=== PATIENT | female | born 1975 | race Caucasian/White ===

== ENCOUNTER 2017-09-28 22:28 | Emergency (ER) | payer SELFPAY ==
--- NOTE | 2017-09-28 23:08 | ED.PDOC ---
History of Present Illness - General Chief Complaint: General Stated Complaint: H/A dry mouth,SOB, nausea, Chest heavy Time Seen by Provider: 09/28/17 23:05 Additional Information: 41 YEAR OLD WHITE FEMALE PRESENTS WITH THE FOLLOWING SYMPTOMS WEAKNESS SHORTNESS OF BREATH CHILLS SHARP CHEST PAIN WORSE WITH DEEP BREATH SHE HAS BEEN LYING IN BED FOR A WEEK SHE HAS POOR APPETITE AND DENIES ANY MAJOR MEDICAL ILLNESS SHE IS A CHRONIC IV METH USER LAST USE WAS A WEEK AGO SHE DOES NOT SHARE NEEDLES NO HISTORY OF HIV HEPATITIS SHE HAS BEEN TO REHAB FEW TIMES BUT NEVER QUITS USING IV METH - History of Present Illness Timing/Duration: 1 week Improving Factors: rest Worsening Factors: movement Associated Symptoms: chest pain, cough, loss of appetite, shortness of breath, weakness Allergies/Adverse Reactions: Allergies Aspirin Allergy (Verified 09/28/17 22:59) Home Medications: Ambulatory Orders NK [NK] 09/28/17 Review of Systems - Review of Systems Constitutional: States: see HPI EENTM: States: no symptoms reported Respiratory: States: short of breath Cardiology: States: chest pain Gastrointestinal/Abdominal: States: no symptoms reported Genitourinary: States: no symptoms reported Musculoskeletal: States: no symptoms reported Skin: States: no symptoms reported Neurological: States: no symptoms reported Endocrine: States: no symptoms reported Past Medical History (General) - Patient Medical History Hx Stroke: Yes Hx Congestive Heart Failure: No Hx Diabetes: No Surgical History: cholecystectomy - Vaccination History Hx Tetanus, Diphtheria Vaccination: No Hx Influenza Vaccination: No - Social History Hx Alcohol Use: Yes Family Medical History - Family History Father Family History: Unknown Physical Exam - Physical Exam General Appearance: Anxious, Obvious distress Eye Exam: bilateral normal Ears, Nose, Throat: hearing grossly normal, normal ENT inspection, normal pharynx Neck: non-tender, full range of motion, supple Respiratory: respiratory distress, decreased breath sounds Cardiovascular/Chest: normal peripheral pulses, regular rate, rhythm, no edema, no gallop, no JVD, no murmur Peripheral Pulses: radial,right: 2+, radial,left: 2+, femoral,right: 2+, femoral ,left: 2+ Gastrointestinal/Abdominal: normal bowel sounds, non tender, soft, no organomegaly, no pulsatile mass Back Exam: normal inspection, no CVA tenderness, no vertebral tenderness Extremity: normal range of motion, non-tender, normal inspection Neurologic: carbonation equipment tender II-XII nml as tested, no motor/sensory deficits, alert, normal mood/affect, oriented x 3 Departure - Departure Clinical Impression: Pneumonia, Sepsis, Acute renal injury, Gastroenteritis, Drug abuse Disposition: Transfer to Hospital Departure Forms: ED Discharge - Pt. Copy, Patient Portal Self Enrollment Home Medications: Ambulatory Orders NK [NK] 09/28/17 Transfer to Outside Facility - Transfer Information Accepting Provider:: DR WALKER Accepting Facility: [facility] Reason for Transfer: specialized care not available
[2017-09-28] MEDS ORDERED: SODIUM CHLORIDE 0.9% 1000ML 1,000 ML IVS ONE (23:12)
--- NOTE | 2017-09-28 23:48 | RAD ---
EXAM: AP CHEST RADIOGRAPH CLINICAL INDICATION: Pneumonia. COMPARISON: None. FINDINGS: Cardiac size and pulmonary vasculature are normal. Peripheral consolidations in the upper right lung. Scattered airspace consolidations in the mid and lower left lung. No pleural effusions, pneumothorax or free peritoneal gas. Bones are intact on this single view. IMPRESSION: Bilateral airspace consolidations suspicious for pneumonia. Electronically signed by: Silvano Caraballo MD 09/28/2017 11:47 PM CDT
[2017-09-29] MEDS ORDERED: CEFEPIME 2 GM in SODIUM CHL 0.9% 50ML MIN-BAG+ 50 ML IVPB ONE (00:47)
[2017-09-29] MEDS ORDERED: SODIUM CHL 0.9% 50ML MIN-BAG+ 50 ML IVPB ONE (00:57)
[2017-09-29] MEDS ORDERED: CEFEPIME 2 GM VIAL IVPB ONE (00:57)
[2017-09-29] MEDS ORDERED: SODIUM CHLORIDE 0.9% 1000ML 1,000 ML ONE (02:18)
[2017-09-29] MEDS ORDERED: SODIUM CHLORIDE 0.9% 1000ML 1,000 ML IVS ONE (02:55)
[2017-09-29 06:30] VITALS: BP 104/58
[2017-09-29 07:26] VITALS: TEMP 98.1; O2SAT 90
== END 2017-09-29 06:55 | disposition short-term general hospital (02) ==
LOC: ER 22:28
DX: A41.9 Sepsis, unspecified organism (principal); J18.9 Pneumonia, unspecified organism; K52.9 Noninfective gastroenteritis and colitis, unspecified; N17.9 Acute kidney failure, unspecified; F19.10 Other psychoactive substance abuse, uncomplicated; Z86.73 Personal history of transient ischemic attack (TIA), and cerebral infarction without residual deficits
CPT/HCPCS: 36415; 36600; 71045; 80053; 82803; 82805; 85025; 93005; J0692; J7030; J7050